=== PATIENT | female | born 1960 | race Caucasian/White ===

== ENCOUNTER 2022-10-20 09:14 | Emergency (ER) | payer MEDICARE, OTHER ==
[~2022-10-20] VITALS: Ht 162 cm; Wt 77.0 kg
--- NOTE | 2022-10-20 10:24 | ED General ---
General Chief Complaint: Back Problems Stated Complaint: LWR BACK/NECK/KIMBERLEY SHOULDER PAIN Nursing Triage Note: Patient has presented with back pain for the last 3 days. The pain started in her lower back, the past 2 days the pains gotten worse and now her entire back is hurting. She is tender in her spine in her lower back. She denies any known traums or injury. Source of Information: Patient Exam Limitations: No Limitations (SANDRA PINEDO) History of Present Illness Date Seen by Provider: Oct 20, 2022 Time Seen by Provider: 09:54 Initial Comments This is a 62yo F with pmhx of HTN, HLD, and breast cancer (with L mastectomy) who presents for low back pain. Pt reports a sharp low back pain for 3 days since [id number] in the afternoon. Pain has worsened since then to a 10/10 pain today. Pain is constant and primarily located in the lumbar area, and she occasionally has symptoms in her thoracic spinal area and bilateral shoulders. Pain limits her ability to walk though she is still able to walk. Pt reports she was diagnosed with bronchitis on , finished her course of steroids, and still endorses a cough since . Has not had recent COVID or influenza testing. Pt denies any trauma or injury to the area, falls, chills, or fever. Denies extremity numbness, weakness, or paresthesias. No previous occurence of this pain. No changes in medications for the past couple of months. Pt has not taken anything for the pain. Pt reports she was been in remission for Breast CA since 2016. No scans in the last 1-2 years Timing/Duration: 2-3 Days Severity: Severe Associated Systoms: No Chest Pain, No Diaphoresis, No Fever/Chills, No Headaches, No Nausea/Vomiting, No Shortness of Air (SANDRA PINEDO) Initial Comments Patient was interviewed and examined by me personally along with MS 4. Patient is noted to be tachycardic with a heart rate around 120. She is afebrile by measurement but feels febrile to the touch. Her pain syndrome seems to be more systemic as she has generalized pain in the back and shoulder region without any specific regions of focal tenderness on exam. She comments that she had a similar feeling when she had pneumonia a few years ago. Patient is in remission from her breast cancer and follows with an oncologist at [facility]. (ENDY WHITMAN MD) Allergies and Home Medications Allergies Coded Allergies: No Known Drug Allergies (Unverified , 10/20/22) Patient Home Medication List Home Medication List Reviewed: Yes (ENDY WHITMAN MD) Review of Systems Review of Systems Constitutional: No chills, No diaphoresis, No dizziness, No fever, No weakness Respiratory: cough; No short of breath Cardiovascular: no symptoms reported Gastrointestinal: no symptoms reported Genitourinary: no symptoms reported Musculoskeletal: back pain (bilateral low back, sometimes worse on right, and radiates to upper back and shoulders) Skin: no symptoms reported (SANDRA PINEDO) Past Kqacwcr-Eqjvte-Gnljtk Hx Patient Social History Tobacco Use?: No Use of E-Cig and/or Vaping dev: No Substance use?: No Alcohol Use?: Yes Pt feels they are or have been: Yes (SANDRA PINEDO) Physical Exam Vital Signs Vital Signs - First Documented 10/20/22 09:25 Temp 36.6 Pulse 121 Resp 20 B/P (MAP) 101/64 (76) Pulse Ox 97 O2 Delivery Room Air (ENDY WHITMAN MD) Vital Signs Capillary Refill : (SANDRA PINEOD) Height, Weight, BMI Height: '" Weight: lbs. oz. kg; 29.00 BMI Method: General Appearance: No Apparent Distress, WD/WN HEENT: Other (dry tongue and mucous membranes) Respiratory: Chest Non Tender, Lungs Clear, Normal Breath Sounds, No Accessory Muscle Use, No Respiratory Distress Cardiovascular: Regular Rate, Rhythm, No Edema, No Murmur Gastrointestinal: Normal Bowel Sounds, No Organomegaly, No Pulsatile Mass, Non Tender, Soft Back: Normal Inspection, No CVA Tenderness, Other (pain at posterior sacral area on right side, more pain with movement, not as much tenderness to palpation. No tenderness over lumbar, thoracic, or cervical spine at midline.) Extremity: Normal Capillary Refill, Normal Inspection, Normal Range of Motion, Other (bilateral shoulder/upper trapezius tenderness) Neurologic/Psychiatric: Alert, Oriented x3, No Motor/Sensory Deficits, Normal Mood/Affect Skin: Normal Color, Warm/Dry Lymphatic: No Adenopathy (SANDRA PINEDO) Focused Exam Lactate Level 10/20/22 11:27: Lactic Acid Level 1.03 (ENDY WHITMAN MD) Lactic Acid Level Laboratory Tests Test 10/20/22 11:27 Lactic Acid Level 1.03 MMOL/L (0.50-2.00) (ENDY WHITMAN MD) Progress/Results/Core Measures Suspected Sepsis SIRS Temperature: Pulse: 121 Respiratory Rate: 20 Laboratory Tests 10/20/22 10:46: White Blood Count 15.7H Blood Pressure 101 /64 Mean: 76 Laboratory Tests 10/20/22 10:46: Platelet Count 321 (SANDRA PINEDO) Results/Orders Lab Results Laboratory Tests Test 10/20/22 09:31 10/20/22 10:46 10/20/22 11:27 10/20/22 11:45 Range/Units Influenza Type A (RT-PCR) Not Detected Not Detecte Influenza Type B (RT-PCR) Not Detected Not Detecte SARS-CoV-2 RNA (RT-PCR) Not Detected Not Detecte White Blood Count 15.7 H 4.3-11.0 10^3/uL Red Blood Count 4.01 3.80-5.11 10^6/uL Hemoglobin 12.2 11.5-16.0 g/dL Hematocrit 36 35-52 % Mean Corpuscular Volume 89 80-99 fL Mean Corpuscular Hemoglobin 30 25-34 pg Mean Corpuscular Hemoglobin Concent 34 32-36 g/dL Red Cell Distribution Width 13.5 10.0-14.5 % Platelet Count 321 130-400 10^3/uL Mean Platelet Volume 9.4 9.0-12.2 fL Immature Granulocyte % (Auto) 1 % Neutrophils (%) (Auto) 85 H 42-75 % Lymphocytes (%) (Auto) 7 L 12-44 % Monocytes (%) (Auto) 7 0-12 % Eosinophils (%) (Auto) 1 0-10 % Basophils (%) (Auto) 0 0-10 % Neutrophils # (Auto) 13.3 H 1.8-7.8 10^3/uL Lymphocytes # (Auto) 1.1 1.0-4.0 10^3/uL Monocytes # (Auto) 1.1 H 0.0-1.0 10^3/uL Eosinophils # (Auto) 0.1 0.0-0.3 10^3/uL Basophils # (Auto) 0.0 0.0-0.1 10^3/uL Immature Granulocyte # (Auto) 0.1 0.0-0.1 10^3/uL Neutrophils % (Manual) 80 % Lymphocytes % (Manual) 8 % Monocytes % (Manual) 7 % Eosinophils % (Manual) 2 % Band Neutrophils 3 % Toxic Granulation 1+ Platelet Estimate NORMAL Blood Morphology Comment NORMAL Prothrombin Time 12.5 12.2-14.7 SEC INR Comment 0.9 0.8-1.4 Activated Partial Thromboplast Time 26 24-35 SEC Sodium Level 133 L 135-145 MMOL/L Potassium Level 4.6 3.6-5.0 MMOL/L Chloride Level 95 L 98-107 MMOL/L Carbon Dioxide Level 23 21-32 MMOL/L Anion Gap 15 H 5-14 MMOL/L Blood Urea Nitrogen 21 H 7-18 MG/DL Creatinine 1.24 0.60-1.30 MG/DL Estimat Glomerular Filtration Rate 49 BUN/Creatinine Ratio 17 Glucose Level 108 H 70-105 MG/DL Calcium Level 11.0 H 8.5-10.1 MG/DL Corrected Calcium 10.8 H 8.5-10.1 MG/DL Total Bilirubin 0.8 0.1-1.0 MG/DL Aspartate Amino Transf (AST/SGOT) 18 5-34 U/L Alanine Aminotransferase (ALT/SGPT) 24 0-55 U/L Alkaline Phosphatase 100 40-136 U/L Total Creatine Kinase 40 29-168 U/L C-Reactive Protein 18.63 H <0.50 MG/DL Total Protein 8.8 H 6.4-8.2 GM/DL Albumin 4.2 3.2-4.5 GM/DL Lactic Acid Level 1.03 0.50-2.00 MMOL/L Urine Color DK YELLOW Urine Clarity CLEAR Urine pH 5.5 5-9 Urine Specific Fertile >=1.030 1.016-1.022 Urine Protein NEGATIVE NEGATIVE Urine Glucose (UA) NEGATIVE NEGATIVE Urine Ketones NEGATIVE NEGATIVE Urine Nitrite NEGATIVE NEGATIVE Urine Bilirubin 1+ H NEGATIVE Urine Urobilinogen 0.2 < = 1.0 MG/DL Urine Leukocyte Esterase NEGATIVE NEGATIVE Urine RBC (Auto) TRACE-I H NEGATIVE Urine RBC RARE /HPF Urine WBC 0-2 /HPF Urine Squamous Epithelial Cells RARE /HPF Urine Crystals NONE /LPF Urine Bacteria FEW H /HPF Urine Casts PRESENT /LPF Urine Hyaline Casts 2-5 H /LPF Urine Mucus MODERATE H /LPF Urine Culture Indicated CULTURE PENDING (ENDY WHITMAN MD) My Orders Orders - ENDY WHITMAN MD Covid 19 Inhouse Test (10/20/22 09:29) Influenza A And B By Pcr (10/20/22 09:29) Cbc With Automated Diff (10/20/22 10:29) Comprehensive Metabolic Panel (10/20/22 10:29) Creatine Kinase (10/20/22 10:29) Ed Iv/Invasive Line Start (10/20/22 10:29) Crp Fs (10/20/22 10:38) Lactated Ringers (Lr 1000 Ml Iv Solution (10/20/22 10:45) Fentanyl Inj (Sublimaze Injection) (10/20/22 10:45) Manual Differential (10/20/22 10:46) Blood Culture (10/20/22 11:20) Urinalysis (10/20/22 11:20) Urine Culture (10/20/22 11:20) Protime With Inr (10/20/22 11:20) Partial Thromboplastin Time (10/20/22 11:20) Chest 1 View Ap/Pa Only (10/20/22 11:20) Vital Signs Adult Sepsis Patie Q15M (10/20/22 11:20) Remove Rings In Anticipation O (10/20/22 11:20) Lactic Acid Analyzer (10/20/22 11:20) Ct Chest/Abdomen/Pelvis W (10/20/22 12:23) Iohexol Injection (Omnipaque 350 Mg/Ml 1 (10/20/22 12:45) Received Contrast (Hold Metformin- Contr (10/20/22 12:45) Sodium Chloride Flush (Catheter Flush Sy (10/20/22 12:45) Ns (Ivpb) (Sodium Chloride 0.9% Ivpb Bag (10/20/22 12:45) Morphine Injection (Morphine Injection (10/20/22 13:31) Piperacillin Sodium/Tazobactam (Zosyn Vi (10/20/22 13:45) Ondansetron Injection (Zofran Injectio (10/20/22 17:00) Morphine Injection (Morphine Injection (10/20/22 16:55) (ENDY WHITMAN MD) Medications Given in ED (ENDY WHITMAN MD) Vital Signs/I&O 10/20/22 10/20/22 09:25 16:48 Temp 36.6 36.6 Pulse 121 93 Resp 20 20 B/P (MAP) 101/64 (76) 106/72 Pulse Ox 97 O2 Delivery Room Air Room Air 10/21/22 00:00 Intake Total 1100 ml Balance 1100 ml (ENDY WHITMAN MD) Vital Signs/I&O Capillary Refill : (SANDRA PINEDO) Blood Pressure Mean: 76 Progress Note #1: Time: 12:29 Progress Note Patient was interviewed and examined by me personally along with MS 4. Pain was treated with fentanyl. Labs have been reviewed and were concerning for sepsis in light of her tachycardia. She had notable elevation in WBC and CRP. Chest x-ray showed some increased density in the right perihilar region which may be related to pneumonitis. Given a rather indefinite source of infection as well as her significant cancer history, I have recommended CT imaging for further evaluation. Patient is agreeable. She has received a liter of IV fluid as there is evidence of early dehydration with hyaline casts in her urine. Progress Note #2: Time: 13:37 Progress Note Patient's chest x-ray was abnormal showing some pneumonitis or edema in the right perihilar region. Due to her abnormal labs, history of cancer, and tachycardia, I recommended CT of the chest, abdomen and pelvis. Patient was agreeable to this approach. A possible obstructive pneumonia was noted in the medial right lower lung on CT scan. Bronchoscopy versus short-term follow-up was recommended by the radiologist. The CT was viewed by me and report was reviewed. I did appreciate the consolidation in the right lower lung which had the appearance of a mass, obstruction, and/or dense consolidation by my interpretation. I have contacted the [facility] transfer center to inquire about transfer versus close follow-up. The transfer center will seek consultation with a separations scientist and call back. Patient's pain was initially treated with fentanyl. Pain has rebounded and was further treated with morphine. I did discuss the case with Dr. Sierra, general surgeon on-call. Although some forms of bronchoscopy are performed at [facility], this particular case would not be appropriate for [place] due to history of prior neoplasm and the potential complications that implies. In addition, we have no in-house pulmonology services in [place]. Dr. Sierra advised to transferring to higher level of care with in-house pulmonology. In this case, patient has a long standing oncology relationship with [facility]. Due to the possibility of this being a sequela of her cancer pathology, [facility] is the most appropriate place for her to continue care. Transfer elsewhere may cause undue harm by delaying care or disrupting continuity of care. (ENDY WHITMAN MD) Diagnostic Imaging Diagonstic Imaging: Xray Plain Films/CT/US/NM/MRI: chest Comments Chest x-ray was viewed by me. By my interpretation there are infiltrates in the right lower lung. Radiologist's report was reviewed. See report below: NAME: CANDELARIO,TRINO Patrice Flickme REC#: [id number] PT STATUS: REG ER : 1960 PHYSICIAN: ENDY WHITMAN MD ADMIT DATE: 10/20/22/ER FS Draft Date of Exam:10/20/22 CHEST 1 VIEW AP/PA ONLY INDICATION: Tachycardia Portable AP view of chest is obtained. There is no previous study for comparison. Overall heart size and pulmonary vascularity are within normal limits. There is mild increased density in the right perihilar region which could represent edema and/or pneumonitis. Surgical clips are seen in the left axilla as well as projecting over the left hilum. IMPRESSION: Mild asymmetric increased density in right perihilar region may represent edema and/or pneumonitis. Otherwise, no definite acute abnormality is seen. Dictated on workstation # [id number] Dict: 10/20/22 1130 Trans: 10/20/22 1132 [facility] [id number] Interpreted by: MOOKIE KO MD Diagonstic Imaging: CT Plain Films/CT/US/NM/MRI: chest, abdomen, pelvis Comments CT chest, abdomen and pelvis viewed by me and report reviewed. See radiologist report below: NAME: CANDELARIOTRINO [facility] REC#: [id number] PT STATUS: REG ER : 1960 PHYSICIAN: ENDY WHITMAN MD ADMIT DATE: 10/20/22/ER FS Draft Date of Exam:10/20/22 CT CHEST/ABDOMEN/PELVIS W EXAMINATION: CT chest, abdomen and pelvis with intravenous contrast. TECHNIQUE: Multiple contiguous axial images were obtained through the chest, abdomen and pelvis after the uneventful administration of intravenous contrast. All CT scans use one or more of the following dose optimizing techniques: automated exposure control, MA and/or KvP adjustment based on patient size and exam type or iterative reconstruction. HISTORY: Elevated white blood cell count, back pain, breast cancer. COMPARISON: None available. FINDINGS: There is an area of consolidation in the right middle lobe. There is abrupt occlusion of the medial segmental bronchus of the right middle lobe. There is mild basilar atelectasis. No pleural effusion. No pneumothorax. No suspicious nodules. There is no axillary or supraclavicular lymphadenopathy. There is no mediastinal lymphadenopathy. There has been a left mastectomy. There has been a left axillary lymph node dissection. Mediastinal lymph nodes remain subcentimeter in short axis. Heart size is normal. There are mild coronary artery calcifications. No pericardial effusion. Aorta is normal in caliber. There are old left-sided rib fractures. The liver is normal without focal lesion. There is no biliary ductal dilation. Gallbladder is normal. Pancreas is normal. Spleen is normal. Adrenal glands are normal. The kidneys are normal. There is no hydronephrosis. Urinary bladder is normal. Bowel is normal in caliber without obstruction or inflammation. No free fluid or air. No abdominal or pelvic lymphadenopathy. Aorta is normal in caliber without aneurysm. There are no suspicious osseus lesions. IMPRESSION: 1. Medial segmental bronchial occlusion with distal consolidation. All findings may represent pneumonia, an obstructing endobronchial lesion with postobstructive pneumonia would also appear in this manner. Either bronchoscopy or short-term followup is recommended. 2. No acute abnormality in the abdomen or pelvis. Dictated on workstation # [id number] Dict: 10/20/22 1255 Trans: 10/20/22 1302 CV [id number] Interpreted by: PARI HALL MD (ENDY WHITMAN MD) Departure Impression Primary Impression: Obstructive pneumonia Additional Impression: History of breast cancer Disposition: [facility] Condition: Improved Admissions Decision to Admit/Date: Oct 20, 2022 (ENDY WHITMAN MD) Transfer Transfer Reason: Exceeds level of care Transfer Progress Notes [facility] separations scientist recommended admission and transfer to [facility]. Arrangements made via [facility] regional transfer liaison. Transfer Time: 17:59 Transfer Facility: [facility] Method of Transfer: EMS (ENDY WHITMAN MD) Departure-Patient Inst. Referrals: NO,LOCAL PHYSICIAN (PCP/Family) Primary Care Physician Medical Student Attestation and Attending Note: I have personally interviewed and examined this patient along with Sandra Pinedo, MS 4. I have reviewed student documentation including history, physical, and assessments. I agree with the documentation except where otherwise noted. Exam: General: Alert, oriented, no acute distress, well developed HEENT: Normocephalic and atraumatic Heart: Regular rhythm with tachycardia without murmur Lungs: Clear to auscultation bilaterally with normal effort Abdomen: Soft, nontender, nondistended, normal bowel sounds Musculoskeletal: Minor tenderness at the right buttock other areas of stated pain such as the shoulder or back are nontender to palpation Neuropsych: Alert, oriented, no focal deficits Skin: Warm and dry without rashes (ENDY WHITMAN MD) SANDRA PINEDO Oct 20, 2022 10:24 ENDY WHITMAN MD Oct 20, 2022 12:35
[2022-10-20] MEDS ORDERED: LACTATED RINGERS 1,000 ML IV ONE (10:45)
[2022-10-20] MEDS ORDERED: fentaNYL INJ 100 MCG/2 ML AMP IVP ONE (10:45)
[2022-10-20 10:50] LABS: BASOPHILS % (AUTO) 0 % (0-10); EOSINOPHILS # (AUTO) 0.1 10^3/uL (0.0-0.3); EOSINOPHILS % (AUTO) 1 % (0-10); HEMATOCRIT 36 % (35-52); HEMOGLOBIN 12.2 g/dL (11.5-16.0); LYMPHOCYTES # (AUTO) 1.1 10^3/uL (1.0-4.0); LYMPHOCYTES % (AUTO) 7 % (12-44); MEAN CORPUSCULAR HEMOGLOBIN 30 pg (25-34); MEAN CORPUSCULAR HGB CONC 34 g/dL (32-36); MEAN CORPUSCULAR VOLUME 89 fL (80-99); MEAN PLATELET VOLUME 9.4 fL (9.0-12.2); MONOCYTES # (AUTO) 1.1 10^3/uL (0.0-1.0); MONOCYTES % (AUTO) 7 % (0-12); NEUTROPHILS # (AUTO) 13.3 10^3/uL (1.8-7.8); NEUTROPHILS % (AUTO) 85 % (42-75); PLATELET COUNT 321 10^3/uL (130-400); WHITE BLOOD COUNT 15.7 10^3/uL (4.3-11.0)
[2022-10-20 11:16] LABS: ALBUMIN 4.2 GM/DL (3.2-4.5); BILIRUBIN,TOTAL 0.8 MG/DL (0.1-1.0); CREATININE SERUM 1.24 MG/DL (0.60-1.30); POTASSIUM 4.6 MMOL/L (3.6-5.0); TOTAL PROTEIN 8.8 GM/DL (6.4-8.2)
[2022-10-20 11:26] LABS: BAND NEUTROPHILS 3 %; EOSINOPHILS % (MANUAL) 2 %; LYMPHOCYTES % (MANUAL) 8 %; MONOCYTES % (MANUAL) 7 %; NEUTROPHILS % (MANUAL) 80 %; PLATELET ESTIMATE NORMAL; RBC MORPH NORMAL; TOXIC GRANULATION/VACUOLAZATIO 1+
--- NOTE | 2022-10-20 11:33 | Diagnostic Imaging Report ---
INDICATION: Tachycardia Portable AP view of chest is obtained. There is no previous study for comparison. Overall heart size and pulmonary vascularity are within normal limits. There is mild increased density in the right perihilar region which could represent edema and/or pneumonitis. Surgical clips are seen in the left axilla as well as projecting over the left hilum. IMPRESSION: Mild asymmetric increased density in right perihilar region may represent edema and/or pneumonitis. Otherwise, no definite acute abnormality is seen. Dictated by: Dictated on workstation # [id number]
[2022-10-20 11:44] LABS: INR 0.9 (0.8-1.4); PROTHROMBIN TIME PATIENT 12.5 SEC (12.2-14.7)
[2022-10-20 11:55] LABS: CLARITY,URINE CLEAR; GLUCOSE, URINE (UA) NEGATIVE (NEGATIVE); KETONES,URINE NEGATIVE (NEGATIVE); LEUKOCYTE ESTERASE ,URINE NEGATIVE (NEGATIVE); NITRITE,URINE NEGATIVE (NEGATIVE); PH,URINE 5.5 (5-9); PROTEIN,URINE NEGATIVE (NEGATIVE)
[2022-10-20 12:05] LABS: BACTERIA,URINE FEW /HPF; RBC,URINE RARE /HPF; SQUAMOUS EPITHELIAL CELL,UR RARE /HPF; WBC,URINE 0-2 /HPF
[2022-10-20 12:06] LABS: BILIRUBIN,URINE 1+ (NEGATIVE); COLOR,URINE DK YELLOW
[2022-10-20] MEDS ORDERED: NS 100 ML (IVPB) BAG IV ONE (12:45)
[2022-10-20] MEDS ORDERED: IOHEXOL 350 MG/ML 100 ML (OMNIPAQUE 350) VIAL IV ONE (12:45)
[2022-10-20] MEDS ORDERED: CATHETER FLUSH 10 ML SYR IV PRN (12:45)
[2022-10-20] MEDS ORDERED: HOLD METFORMIN - RECEIVED CONTRAST 20 ML VIAL IV SCH (12:45)
--- NOTE | 2022-10-20 13:02 | Diagnostic Imaging Report ---
EXAMINATION: CT chest, abdomen and pelvis with intravenous contrast. TECHNIQUE: Multiple contiguous axial images were obtained through the chest, abdomen and pelvis after the uneventful administration of intravenous contrast. All CT scans use one or more of the following dose optimizing techniques: automated exposure control, MA and/or KvP adjustment based on patient size and exam type or iterative reconstruction. HISTORY: Elevated white blood cell count, back pain, breast cancer. COMPARISON: None available. FINDINGS: There is an area of consolidation in the right middle lobe. There is abrupt occlusion of the medial segmental bronchus of the right middle lobe. There is mild basilar atelectasis. No pleural effusion. No pneumothorax. No suspicious nodules. There is no axillary or supraclavicular lymphadenopathy. There is no mediastinal lymphadenopathy. There has been a left mastectomy. There has been a left axillary lymph node dissection. Mediastinal lymph nodes remain subcentimeter in short axis. Heart size is normal. There are mild coronary artery calcifications. No pericardial effusion. Aorta is normal in caliber. There are old left-sided rib fractures. The liver is normal without focal lesion. There is no biliary ductal dilation. Gallbladder is normal. Pancreas is normal. Spleen is normal. Adrenal glands are normal. The kidneys are normal. There is no hydronephrosis. Urinary bladder is normal. Bowel is normal in caliber without obstruction or inflammation. No free fluid or air. No abdominal or pelvic lymphadenopathy. Aorta is normal in caliber without aneurysm. There are no suspicious osseus lesions. IMPRESSION: 1. Medial segmental bronchial occlusion with distal consolidation. All findings may represent pneumonia, an obstructing endobronchial lesion with postobstructive pneumonia would also appear in this manner. Either bronchoscopy or short-term followup is recommended. 2. No acute abnormality in the abdomen or pelvis. Dictated by: Dictated on workstation # [id number]
[2022-10-20] MEDS ORDERED: morphine INJ 10 MG/ML 1ML (SYR OR VIAL) IVP STA ×2 (13:31→16:55)
[2022-10-20] MEDS ORDERED: PIPERACILLIN SODIUM/TAZOBACTAM 4.5 GM in NS (IVPB) 100 ML IV ONE (13:45)
[2022-10-20 16:48] VITALS: BP 106/72
[2022-10-20] MEDS ORDERED: ONDANSETRON 4 MG/2 ML (SDV) Z0FRAN IVP ONE (17:00)
== END 2022-10-20 17:59 | disposition short-term general hospital (02) ==
LOC: ER FS 09:16
DX: J18.8 Other pneumonia, unspecified organism (principal); Z85.3 Personal history of malignant neoplasm of breast; Z20.822 Contact with and (suspected) exposure to COVID-19
CPT/HCPCS: 36415; 71045; 71260; 74177; 80053; 81000; 82550; 83605; 85007; 85027; 85610; 85730; 86141; 87040; 87088; 87636; Q9967